=== PATIENT | male | born 1985 | race Caucasian/White ===

== ENCOUNTER 2016-12-14 19:09 | Emergency (ER) | payer OTHER ==
[~2016-12-14 19:09] MED LIST: NO MEDICATIONS
== END 2016-12-14 20:59 | disposition home or self-care (01) ==
LOC: SED 19:09
DX: T40.1X1A Poisoning by heroin, accidental (unintentional), initial encounter (principal); F11.10 Opioid abuse, uncomplicated
CPT/HCPCS: 36415; 96374; 99283